=== PATIENT | female | born 1975 | race Caucasian/White ===

== ENCOUNTER 2021-02-10 11:54 | Emergency (ER) | payer OTHER ==
[2021-02-10 12:24] VITALS: TEMP 98; BMI 24.7
[2021-02-10 13:09] VITALS: BP 139/87; PULSE 71
== END 2021-02-10 14:25 | disposition home or self-care (01) ==
LOC: FER 11:54
DX: Z04.1 Encounter for examination and observation following transport accident (principal); V89.2XXA Person injured in unspecified motor-vehicle accident, traffic, initial encounter; Y92.9 Unspecified place or not applicable
CPT/HCPCS: 70450-TC; 99284-25